=== PATIENT | male | born 1985 | race African-American/Black ===

== ENCOUNTER 2016-08-28 06:09 | Emergency (ER) | payer SELFPAY ==
[~2016-08-28] VITALS: Ht 188 cm; Wt 97.3 kg
[2016-08-28] MEDS ORDERED: MAGNESIUM/ALUMINUM HYDROXIDE/SIMETHICONE 30ML UDC PO STA (08:04)
[2016-08-28] MEDS ORDERED: VISCOUS LIDOCAINE 2% 15 ML UDC MM ONE (08:15)
[2016-08-28 08:25] LABS: BASOPHILS % 0.7 % (0.0-2.0); EOSINOPHILS % 1.6 % (0.0-5.0); HEMATOCRIT. 44.4 % (42.0-52.0); HEMOGLOBIN. 15.1 g/dL (14.0-18.0); LYMPHOCYTES % 18.2 % (20.0-50.0); MEAN CORPUSCULAR HEMOGLOBIN 32.3 pg (28.0-32.0); MEAN CORPUSCULAR VOLUME 94.9 fL (80.0-94.0); MEAN PLATELET VOLUME 6.8 fl (7.4-10.4); MONOCYTES % 11.7 % (2.0-8.0); NEUTROPHILS % 67.8 % (40.0-76.0); PLATELET 313 x1000/uL (130-400); RED BLOOD CELL COUNT 4.68 mill/uL (4.7-6.1); RED CELL DISTRIBUTION WIDTH 12.9 % (11.6-14.6); WHITE BLOOD COUNT 10.9 x1000/uL (4.5-11.0)
[2016-08-28 08:32] LABS: INR 1.1; PARTIAL THROMBOPLASTIN TIME 29.9 sec (24.0-34.0)
[2016-08-28 08:35] LABS: ALANINE AMINOTRANSFERASE 39 IU/L (13-61); ALBUMIN 4.1 g/dL (3.4-5.0); ANION GAP 12; CALCIUM 8.7 mg/dL (8.5-10.1); CARBON DIOXIDE 28 mEq/L (21-32); CHLORIDE 105 mEq/L (98-107); INDEX HEMOLYSI 1 (1-3); INDEX ICTERIC 1 (1-4); INDEX LIPEMIC 1 (1-3); LIPASE 82 IU/L (73-393); UREA NITROGEN BLOOD 10 mg/dL (7-21)
[2016-08-28 08:40] LABS: TROPONIN I < 0.02 ng/mL (0.00-0.04); eGFR > 60 mL/min (>60)
[2016-08-28 08:54] LABS: CLARITY URINE CLEAR (CLEAR); COLOR URINE YELLOW (YELLOW); GLUCOSE URINE NEGATIVE (NEGATIVE); KETONES URINE NEGATIVE (NEGATIVE); LEUKOCYTE ESTERASE URINE TRACE (NEGATIVE); NITRITE URINE NEGATIVE (NEGATIVE); OCCULT BLOOD URINE NEGATIVE (NEGATIVE); PROTEIN URINE NEGATIVE (NEGATIVE); SPECIFIC GRAVITY URINE 1.024 (1.005-1.030)
[2016-08-28 09:09] LABS: MUCUS URINE TRACE /lpf (NONE/TRACE); SQUAMOUS EPITHELIAL CELL URINE RARE /lpf (RARE/1+)
[2016-08-28 09:10] LABS: BACTERIA URINE TRACE; RBC URINE NONE SEEN /hpf (0-2)
[2016-08-28] MEDS ORDERED: KETOROLAC 30MG/ML VIAL IV ONE (10:30)
[2016-08-28 10:39] VITALS: BP 167/94
[2016-08-28] MEDS ORDERED: IOHEXOL-350 100 ML BOTTLE ONE (14:44)
[2016-08-28] MEDS ORDERED: SODIUM CHLORIDE 0.9% 10ML VIAL ONE (14:44)
== END 2016-08-28 13:45 | disposition home or self-care (01) ==
LOC: ER 08:36
DX: R07.81 Pleurodynia (principal); R10.33 Periumbilical pain; R03.0 Elevated blood-pressure reading, without diagnosis of hypertension; R00.1 Bradycardia, unspecified; M79.602 Pain in left arm; F12.90 Cannabis use, unspecified, uncomplicated
CPT/HCPCS: 36415; 71010; 71275; 80053; 81001; 83690; 84484; 85025; 85610; 85730; 93005; 96374; 99285; A4216; J1885; Q9967; Z7610